=== PATIENT | male | born 1980 | race Caucasian/White ===

== ENCOUNTER 2017-07-25 14:50 | Emergency (ER) | payer SELFPAY ==
[~2017-07-25 14:50] MED LIST: OSELTAMIVIR PHOSPHATE 75 MG CAP PO SCH
[2017-07-25 15:34] VITALS: BP 99/60; PULSE 99; RESP 18; TEMP 98.4; O2SAT 95
--- NOTE | 2017-07-25 17:05 | EDPHY ---
H & P Smoking Status: Heavy smoker Time Seen by Provider: 07/25/17 16:49 HPI/ROS: CHIEF COMPLAINT: Cough flu-like symptoms times 2-3 days HISTORY OF PRESENT ILLNESS: 36-year-old immunocompetent homeless male, daily smoker, no influenza vaccination this season, complaining of 2-3 days of flu- like symptoms including sore throat, nonproductive cough, myalgias. No nuchal rigidity. No headache. No nausea or vomiting. No back or flank pain. No abdominal pain. No rash. PRIMARY CARE PROVIDER: None REVIEW OF SYSTEMS: A ten point review of systems was performed and is negative with the exception of the items mentioned in the HPI PAST MEDICAL & SURGICAL HISTORY: No pertinent medical or surgical history SOCIAL HISTORY: Daily cigarette smoker. Homeless. PHYSICAL EXAM (Prior to examination, patient consented to physical exam, hands were washed and my usual and customary physical exam procedures followed) 1) GENERAL: Well-developed, well-nourished, alert and oriented. Appears to be in no acute distress. Sleeping easily woken 2) HEAD: Normocephalic, atraumatic 3) HEENT: Pupils equal, round, reactive to light bilaterally. Sclera anicteric. Nasopharynx, oropharynx, clear, no lesions. No tonsillar enlargement or exudate. Ears bilaterally with normal tympanic membranes. 4) NECK: Full range of motion, no meningeal signs. 5) LUNGS: Clear auscultation bilaterally, no wheezes, no rhonchi, no retractions. 6) HEART: Regular rate and rhythm, no murmur, no heave, no gallop. 7) ABDOMEN: No guarding, no rebound, no focal tenderness, negative McBurney's, negative Vicente's, negative Rovsing's, negative peritoneal sign, 8) MUSCULOSKELETAL: Moving all extremities, no focal areas of tenderness, no obvious trauma. No peripheral edema or discoloration. 9) BACK: No CVA tenderness, no midline vertebral tenderness, no fluctuance, no step-off, no obvious trauma, no visual or palpable abnormality. 10) SKIN: No rash, no petechiae. 11) Psychiatric: Patient is oriented X 3, there is no agitation. DIFFERENTIAL DIAGNOSIS: In no particular include but limited to influenza, meningitis, pneumonia, bronchitis (Tiffany Carranza Leah) Constitutional: Initial Vital Signs Temperature (C) 36.9 C 07/25/17 15:31 Heart Rate 99 07/25/17 15:31 Respiratory Rate 18 07/25/17 15:31 Blood Pressure 99/60 L 07/25/17 15:31 O2 Sat (%) 95 07/25/17 15:31 O2 Delivery Mode Room Air Allergies/Adverse Reactions: No Known Allergies Allergy (Unverified 07/25/17 15:28) Home Medications: Medication Instructions Recorded Mucinex 07/25/17 Oseltamivir Phosphate [Tamiflu] 75 mg PO BIDMEAL 5 Days cap 07/25/17 Tylenol 07/25/17 MDM/Departure - MDM ED Course/Re-evaluation: I do not think this patient is septic, is not hypoxemic, do not think that hospitalization is indicated. Recommend smoking cessation. Tamiflu filled through hospital map program. Care of patient under supervision of secondary supervising physician Dr Bryant . (Tiffany Carranza Leah) I did not see this patient while he was in the emergency department. However his care was discussed with the PA while the patient was in the department. I agree with treatment plan and management. I am the secondary supervising physician (Patricio Bryant) - Depart Disposition: Home, Routine, Self-Care Clinical Impression: Influenza A Condition: Good Instructions: Influenza (ED) Additional Instructions: Return to the emergency department immediately for change in breathing habits, change in voice, change in swallowing habits, change in mental status, or any other symptoms that concern you. Prescriptions: Oseltamivir Phosphate [Tamiflu] 75 mg PO BIDMEAL 5 Days cap Referrals: [facility],. [Clinic] - 2-3 days, call for appt.
--- NOTE | 2017-07-26 09:50 | ASMTCMCOM ---
CM Note CM Note Notes: Met with patient re MAP of Tamiflu. Patient is homeless and tells this CM that he has been to several shelters in [place] and [place] recently. He is concerned that he "cannot get better" because he is forced to leave the senior living during daytime hours when he needs to rest. I explained [facility] to which he tells me he is aware. I have encouraged him to pursue this option as way to work toward changing his situatiion with an opportunity to work toward permanent senior living and independence. Date Signed: 07/26/2017 09:50 AM Electronically Signed By:Polly Townsend RN
== END 2017-07-25 18:18 | disposition home or self-care (01) ==
DX: J10.1 Influenza due to other identified influenza virus with other respiratory manifestations (principal); F17.210 Nicotine dependence, cigarettes, uncomplicated

== ENCOUNTER 2017-07-27 11:11 | Emergency (ER) | payer SELFPAY ==
[2017-07-27 11:27] VITALS: RESP 18
--- NOTE | 2017-07-27 13:13 | EDPHY ---
H & P Smoking Status: Light smoker Time Seen by Provider: 07/27/17 12:32 HPI/ROS: CHIEF COMPLAINT: "I dont have anywhere to go " HISTORY OF PRESENT ILLNESS: 36-year-old homeless male seen the ER recently for diagnosed with influenza a get a prescription for Tamiflu, returns to the ER via ambulance stating that he has no place ago, he would like to "be in quarantine ". He has been taking his medication. Denies acute symptoms. Denies dyspnea. He has a continued intermittently productive cough. No chest pain. No dyspnea. No back pain. No abdominal pain. No fever or chills. REVIEW OF SYSTEMS: A ten point review of systems was performed and is negative with the exception of the items mentioned in the HPI PAST MEDICAL & SURGICAL HISTORY: No pertinent medical or surgical history SOCIAL HISTORY: Homeless. Daily smoker PHYSICAL EXAM (Prior to examination, patient consented to physical exam, hands were washed and my usual and customary physical exam procedures followed) 1) GENERAL: Well-developed, well-nourished, alert and oriented. Appears to be in no acute distress. 2) HEAD: Normocephalic, atraumatic 3) HEENT: Pupils equal, round, reactive to light bilaterally. Sclera anicteric. Nasopharynx, oropharynx, clear, no lesions. No tonsillar enlargement or exudate 4) NECK: Full range of motion, no meningeal signs. 5) LUNGS: Clear auscultation bilaterally, no wheezes, no rhonchi, no retractions. 6) HEART: Regular rate and rhythm, no murmur, no heave, no gallop. 7) ABDOMEN: No guarding, no rebound, no focal tenderness, negative McBurney's, negative Vicente's, negative Rovsing's, negative peritoneal sign, 8) MUSCULOSKELETAL: Moving all extremities, no focal areas of tenderness, no obvious trauma. No peripheral edema or discoloration. 9) BACK: No CVA tenderness 10) SKIN: No rash, no petechiae. 11) Psychiatric: Patient is oriented X 3, there is no agitation. DIFFERENTIAL DIAGNOSIS: In no particular include but limited to influenza, pneumonia, bronchitis (Dillon,D Leah) Constitutional: Initial Vital Signs Temperature (C) 36.5 C 07/27/17 11:19 Heart Rate 78 07/27/17 11:19 Respiratory Rate 18 07/27/17 11:19 Blood Pressure 116/79 07/27/17 11:19 O2 Sat (%) 95 07/27/17 11:19 O2 Delivery Mode Room Air Allergies/Adverse Reactions: No Known Allergies Allergy (Unverified 07/25/17 15:28) Home Medications: Medication Instructions Recorded Mucinex 07/25/17 Oseltamivir Phosphate [Tamiflu] 75 mg PO BIDMEAL 5 Days cap 07/25/17 Tylenol 07/25/17 Medical Decision Making ED Course/Re-evaluation: contact manager has been involved this case. This time I do not think that hospitalization is indicated. He has maintain normal saturations, lungs clear bilaterally, breathing comfortably. He is upset to learn that he will not be able to be staying in the hospital. The pillowcase cutter has ranged for him to go to the [facility]. I have recommended he wear a mask continuously when he is in proximity of other individuals (Tiffany Carranza) The patient was evaluated and managed by the physician floral assistant. I have reviewed this chart and I agree with the findings and plan of care as documented , as indicated by my signature. I am the secondary supervising physician. ( Sonam Marlow) Departure - Departure Disposition: Home, Routine, Self-Care Clinical Impression: Influenza A Condition: Good Instructions: Influenza (ED) Additional Instructions: You should wear a mask whenever you are close to other individuals. We have reserved a bed for you at [facility]: [facility] [place] [address] You may check in tonight between 5:00 PM - 7:00 PM Bring your medication (Tamiflu) with you and let them know you have been taking it since it was prescribed on 07/25/17. You MUST wear a mask at all times Referrals: [facility],. [Clinic] - 2-3 days, call for appt.
[2017-07-27 13:38] VITALS: BP 122/85; PULSE 74; TEMP 97.5; O2SAT 97
--- NOTE | 2017-07-27 14:22 | ASMTCMCOM ---
CM Note CM Note Notes: Patient returns to ER today after ER visit on 07/25/17 for similar symptoms. Patient is homeless, tells this CM he is enrolled in [facility]. He was given (MAP) Tamiflu on his last ER visit and is asking for respite care while he is recovering. I have reserved the [facility] bed for the patient so he can get in to a [facility] earlier this evening and have a cot to sleeo in. I have informed him of the importance to arrive at the chcf by 5:00 PM, bring his Tamiflu with him, inform ch[facility] that he has been taking Tamiflu since it was prescribed on 07/25/17, and to wear a mask at all times. We have provided several masks to the patient. Date Signed: 07/27/2017 02:22 PM Electronically Signed By:Polly Townsend RN
--- NOTE | 2017-07-28 11:20 | ASMTCMCOM ---
CM Note CM Note Notes: Called [facility] ([phone]) before 10am and was able to speak to a staff member and confirm patient would have one of [facility]'s reserved beds for tonight. CM to follow up tomorrow. Date Signed: 07/28/2017 11:20 AM Electronically Signed By:Yolande Parks RN
--- NOTE | 2017-07-28 11:25 | ASDISCHSUM ---
Discharge Information Plan Status:Homeless/Snf Medically Cleared to Leave: Discharge Date:07/27/2017 01:47 PM CM D/C Disposition:Streets (Homeless) ADT D/C Disposition:Home, Routine, Self-Care Projected Discharge Date:07/27/2017 01:47 PM Transportation at D/C:None or Unknown Discharge Delay Reason: Follow-Up Date:07/27/2017 01:47 PM Discharge Slot: Final Diagnosis: Placement Information Patient Contact Information Contact Name:JAY JAYVeronica Relationship: Address: Home Phone: Work Phone: City: Alternate Phone: State/Zip Code: Email: Financial Information Financial Class:Self-Pay Primary Plan Desc:SELF PAY Primary Plan Number: Secondary Plan Desc: Secondary Plan Number: Assessment Information [facility] Progress Note CM Note CM Note Notes: Patient returns to ER today after ER visit on 07/25/17 for similar symptoms. Patient is homeless, tells this CM he is enrolled in [facility]. He was given (MAP) Tamiflu on his last ER visit and is asking for respite care while he is recovering. I have reserved the correction bed for the patient so he can get in to a correction earlier this evening and have a cot to sleeo in. I have informed him of the importance to arrive at the correction by 5:00 PM, bring his Tamiflu with him, inform correction that he has been taking Tamiflu since it was prescribed on 07/25/17, and to wear a mask at all times. We have provided several masks to the patient. Date Signed: 07/27/2017 02:22 PM Electronically Signed By:Polly Townsend RN [facility] CM Progress Note CM Note CM Note Notes: Called [facility] ([phone]) before 10am and was able to speak to a staff member and confirm patient would have one of [facility]'s reserved beds for angella. CM to follow up tomorrow. Date Signed: 07/28/2017 11:20 AM Electronically Signed By:Yolande Parks RN LACE LACE Acuity / Level of Care Answers: No. Emergency dept visits in Answers: 2 last 6 months Score: 2 Date Signed: 07/28/2017 11:24 AM Electronically Signed By:Yolande Parks RN Intervention Information Intervention Type:Snf Date of Service:07/28/2017 11:24 AM Patient Type:Emergency Room Staff Member:WM Parks Sharon Hours:0.25 Discipline:Waiter And Cashier Severity: Comment:correction bed reserved for 07/27 and
== END 2017-07-27 13:47 | disposition home or self-care (01) ==
LOC: EDUNIT#
DX: J10.1 Influenza due to other identified influenza virus with other respiratory manifestations (principal); F17.200 Nicotine dependence, unspecified, uncomplicated